=== PATIENT | female | born 1990 | race Caucasian/White ===

== ENCOUNTER 2016-10-03 20:45 | Emergency (ER) | payer OTHER ==
[~2016-10-03] VITALS: Ht 152.4 cm; Wt 54.0 kg
[2016-10-03 20:50] VITALS: BP 120/78; PULSE 73; RESP 15; TEMP 97.8; O2SAT 100
--- NOTE | 2016-10-03 23:40 | PD ---
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 She states it is somewhat difficult to position initially. Since then she has changed tampons once unnoticed trace amount on the replacement tampon. She is no active bleeding in the ER. No symptom consistent with acute anemia. PFSH Past Medical History ?: Not LMP: 09/30/16 Social History Tobacco Use: Yes Allergies-Medications (Allergen,Severity, Reaction): Coded Allergies: No Known Allergies (Unverified , 10/03/16) Review of Systems General / Constitutional: No: Fever Genitourinary: Positive: Vaginal Bleeding Physical Exam Narrative GENERAL: 26-year-old female pleasant no acute distress SKIN: Warm and dry. HEAD: Atraumatic. Normocephalic. EYES: Pupils equal and round. No scleral icterus. No injection or drainage. GASTROINTESTINAL: Soft. No focus of tenderness. Data Data Last Documented VS Vital Signs Date Time Temp Pulse Resp B/P Pulse Ox O2 Delivery O2 Flow Rate FiO2 10/03/16 20:50 97.8 73 15 120/78 100 Room Air MDM Medical Decision Making Medical Screen Exam Complete: Yes Emergency Medical Condition: Yes Medical Record Reviewed: Yes Differential Diagnosis Vaginal mucosal laceration, menses, cervix laceration Narrative Course Bleeding has stopped. No symptoms consistent with acute anemia. Patient denies any active bleed in the ER. Return precautions discussed. Deference of pelvic examination at this time is considered reasonable by the provider and amenable with patient preference. Diagnosis Primary Impression: Vagina bleeding Referrals: Sales Representative Consultant as needed Additional Instructions: You have a choice when it comes to health care, and we are glad that you chose [facility]. Hopefully, we have met your expectations on today's visit. You are welcome to return to [facility] at any time, as we are committed to meeting the health care needs of our community. Med/Other Pt SpecificInfo: No Change to Meds Disposition: 01 DISCHARGE HOME Condition: Stable Gage Adler MD Oct 03, 2016 23:40
== END 2016-10-04 | disposition home or self-care (01) ==
LOC: NEPE 20:45
DX: N93.9 Abnormal uterine and vaginal bleeding, unspecified (principal); Z72.0 Tobacco use
CPT/HCPCS: 99283